=== PATIENT | female | born 1990 | race Caucasian/White ===

== ENCOUNTER → 2020-02-14 13:00 | Outpatient (BNVA) | payer BC, SELFPAY | PROVIDERS: Family Provider Nurse Practitioner; PCP Nurse Practitioner; Visit Provider Emergency Medicine | DX: R11.0 Nausea (principal); N63.0 Unspecified lump in unspecified breast; N39.0 Urinary tract infection, site not specified; R31.9 Hematuria, unspecified | CPT/HCPCS: 81000 ==

== ENCOUNTER 2021-07-15 10:15 | Outpatient (CLI) | payer OTHER, SELFPAY ==
--- NOTE | 2021-07-15 10:28 | MM_ITS ---
WS: [id number] BILATERAL DIGITAL DIAGNOSTIC MAMMOGRAM MAMMOGRAPHY WITH CAD CLINICAL INFORMATION: lump/mass in breast;Daniele nipple discharge HISTORY: COMPARISON: None. TECHNIQUE: Bilateral CC, MLO, and ML views. FINDINGS: The breasts are composed of heterogeneous fibroglandular density, which can limit the detection of sm all underlying mass lesions. Palpable markers left breast. Underlying nodular dense breast tissue lef t breast. Ultrasound is pending for better anatomic detail. Right breast is unremarkable. ULTRASOUND BREAST LEFT TECHNIQUE: Ultrasound left breast focused area of concern. CLINICAL INFORMATION: lump/mass in breast;Daniele nipple discharge COMPARISON: None. FINDINGS: 2 solid homogeneous well-circumscribed lesions left breast at the 11:00 position. Solid lesions measu re approximately 1.3 x 1.5 x 0.7 cm and 0.8 x 1.0 x 0.6 cm. Associated vascularity. These are indeter minant but suspicious for fibroadenomas in a patient this age. Recommend further evaluation with ultr asound-guided biopsy. No other suspicious ultrasound abnormalities. MM/[place] [id number] IMPRESSION: BI-RADS: 4-Suspicious Finding-Biopsy Should Be Considered FOLLOW UP: US Guided Biopsy Recommended RECOMMEND ULTRASOUND-GUIDED BIOPSY OF THE ABOVE-DESCRIBED LEFT BREAST LESIONS.
== END 2021-07-15 10:16 | disposition home or self-care (01) ==
LOC: RADSHAW 10:21
PROVIDERS: PCP Nurse Practitioner Family; Visit Provider Nurse Practitioner Family
DX: Z87.898 Personal history of other specified conditions (principal); N64.52 Nipple discharge; N64.89 Other specified disorders of breast
CPT/HCPCS: 76642; 77066

== ENCOUNTER → 2021-08-13 12:18 | Outpatient (BNVA) | payer OTHER, SELFPAY | PROVIDERS: PCP Nurse Practitioner Family; Visit Provider Nurse Practitioner Women's Health | DX: N64.52 Nipple discharge (principal) | CPT/HCPCS: 84146; 84443 ==

== ENCOUNTER 2021-08-20 13:24 | Outpatient (CLI) | payer OTHER, SELFPAY ==
--- NOTE | 2021-08-20 13:29 | US_ITS ---
WS: [id number] ULTRASOUND-GUIDED LEFT BREAST BIOPSY x2 HISTORY: SOLID LESIONS COMPARISON: 07/15/2021 and 11/16/2014 Procedure, risks and complications are explained to the patient. Medications are reviewed. Consent is obtained. 2 hypoechoic masses are identified in the LEFT breast at 11:00. Masses are localized with ultrasound. As on the prior examination the larger mass at 11:00 is labeled #1. The smaller mass which is slight ly more proximal to the nipple is labeled #2. Skin is cleansed with ChloraPrep and anesthetized with 1% buffered lidocaine. Small dermatome is made. Under sterile conditions masses are biopsied with 14- gauge Achieve needles. Multiple core biopsies are performed. Material placed in formalin and sent to pathology for review. No complications encountered. Material was placed in formalin as requested with the containers labeled #1 and #2. To indicate the correct mass. Breast tissue marker ([place] ultrasound enhanced ribbon): Clips are placed in each mass. Patient left the radiology suite with no complications. Patient is instructed to return to [facility] with any concerns. US/[id number] IMPRESSION: 1. Uncomplicated core needle biopsy LEFT breast mass labeled #1. PATHOLOGY: Fibroadenoma. RECOMMENDATION: No follow-up necessary. Routine screening mammograms beginning at 40 years of age. 2. Uncomplicated core needle biopsy LEFT breast mass labeled #2. PATHOLOGY: Fibroadenoma. RECOMMENDATION: No follow-up necessary at this time. Routine screening mammogra m beginning at 40 years of age.
== END 2021-08-20 13:25 | disposition home or self-care (01) ==
PROVIDERS: PCP Nurse Practitioner Family; Visit Provider Nurse Practitioner Family
DX: N63.12 Unspecified lump in the right breast, upper inner quadrant (principal); D24.2 Benign neoplasm of left breast
CPT/HCPCS: 19083; 19084; 88305

== ENCOUNTER → 2021-09-17 14:28 | Outpatient (BNVA) | payer OTHER, SELFPAY | PROVIDERS: PCP Nurse Practitioner Family; Visit Provider Nurse Practitioner Women's Health | DX: Z01.419 Encounter for gynecological examination (general) (routine) without abnormal findings (principal); Z11.3 Encounter for screening for infections with a predominantly sexual mode of transmission | CPT/HCPCS: 87491; 87591; 87624; 87661 ==

== ENCOUNTER → 2021-10-25 17:19 | Outpatient (BNVA) | payer OTHER, SELFPAY | PROVIDERS: PCP Nurse Practitioner Family; Visit Provider Nurse Practitioner | DX: R50.9 Fever, unspecified (principal) | CPT/HCPCS: 87400; 87635; 87880 ==

== ENCOUNTER 2022-05-14 13:51 | Observation (INO) | payer SELFPAY ==
[2022-05-14] VITALS (19 sets, daily range): BP systolic 107–173; BP diastolic 74–113; PULSE 54–97; RESP 12–32; TEMP 36.6–36.7; O2SAT 93–100
--- NOTE | 2022-05-14 14:59 | US_ITS ---
WS: [id number] TRANSVAGINAL PELVIC ULTRASOUND HISTORY: abd pain COMPARISON: None available. Uterus: 4.4 cm x 4.6 cm x 8.7 cm. Normal size uterus is midline. No fibroid or mass. Endometrium: Fluid along the endometrial canal. There is a cystic structure with layering echoes whic h may be related to ongoing bleeding. Right ovary: Not visualized. Left ovary: 6.5 cm x 4.7 cm x 5.3 cm. LEFT ovary is enlarged and very heterogeneous. The ovary contai ns small peripheral follicles. There are follicles of various sizes. Adjacent to the LEFT ovary is a complex ovoid hypoechoic mass measuring 4.4 x 2.9 x 3.2 cm with peripheral increased vascularity. The re is a large amount of fluid in the cul-de-sac and extending into the adnexa. This is complex fluid consistent with hemoperitoneum. Clotted blood is also noted within the RIGHT adnexa. US/US transvaginal [id number] IMPRESSION: 1. No intrauterine gestation is identified. There is some fluid and blood prod ucts within the endometrial canal but no identifiable sac, pole or yolk s ac. 2. Moderate amount of complex fluid within the cul-de-sac and greatest into th e LEFT adnexa consistent with hemoperitoneum. 3. Abnormal soft tissue mass in the LEFT adnexa. With a history of positive be ta hCG and no intrauterine gestation ectopic is most likely. This sof t tissue mass measures 4.4 x 2.9 x 3.2 cm. I suspect this ectopic is ruptured. 4. The RIGHT ovary is not visualized. Notified Jeovanny Gamboa MD at 05/14/2022 4:07 PM.
--- NOTE | 2022-05-14 15:00 | ED_ITS ---
HPI - General: Chief complaint: Vaginal Bleeding Stated complaint: preg/bleeding Time Seen by Provider: 05/14/22 14:55 History of Present Illness: 32-year-old presents due to left lower quadrant abdominal pain. States that she believes she is but does not know exac tly how far along she is. States she was seen in clinic yesterday and told she has a positive urine test and went to [place] [facility] but the wait was too long and she left and came here. Patient states she has had vaginal bleeding for 3 weeks. She denies any blood thinner use. Denies any nausea vomiting diarrhea constipation. Denies any dysuria. Date of Last Menstrual Period: 02/07/20 Review of Systems Narrative: - CONSTITUTIONAL: Denies weight loss, fever and chills. - HEENT: Denies changes in vision and hearing. - RESPIRATORY: Denies SOB and cough. - CV: Denies palpitations and CP. - GI: As above - : As above - MSK: Denies myalgia and joint pain. - SKIN: Denies rash and pruritus. - NEUROLOGICAL: Denies headache, weakness, numbness and syncope. - PSYCHIATRIC: Denies suicidal ideation [facility] ED PFSH: Medical History Depression Fibroadenoma of left breast (~08/2021) Hypertension dx by pcp but not on medication No pertinent past medical history neghx: dm,thyroid,dvt/pe PCP: Romulo Lozano Surgical History H/O lumpectomy (~2017) Left breast--- reports several masses-benign at [facility] History of kidney surgery Reflux surgery ---at age 15 Nephrology: Brittany Amezcua at [facility] Family History Grandmother No problems noted. Family/Other Breast cancer Maternal Great Grandmother--dx age unknown Ovarian cancer Maternal Aunt--dx age unknown Grandfather Diabetes Maternal Heart disease Maternal Hypertension Maternal Stroke Maternal Denies family history of Colon cancer Hypercholesteremia Uterine cancer Thyroid disease Female Reproductive History: Date of last menstrual period: 02/07/20 Physical Exam Narrative: EXAM NARRATIVE: - GENERAL: Alert and oriented x 3. No acute distress. Well-nourished. - EYES: EOMI. Anicteric. - HENT: Atraumatic, no C-spine tenderness. Moist mucous membranes. No scleral icterus. No cervical lymphadenopathy. - LUNGS: Clear to auscultation bilaterally. No accessory muscle use. Equal lung sounds bilaterally. No respiratory distress. - CARDIOVASCULAR: Regular rate and rhythm. No murmur. No JVD. - ABDOMEN: Soft, mild left lower quadrant tenderness, non-distended. Negative CVA tenderness bilaterally, no rebound or guarding, negative Vázquez sign. No palpable masses. - EXTREMITIES: No edema. Non-tender. - SKIN: No rashes or lesions. Warm. - NEUROLOGIC: No meningismus or focal neurological deficits. CN II-XII grossly intact. - PSYCHIATRIC: Cooperative. Appropriate mood and affect. Course Vital Signs: Vital signs: Vital Signs Temperature 98.1 F 05/14/22 14:13 Pulse Rate 90 05/14/22 15:51 Respiratory Rate 16 05/14/22 14:13 Blood Pressure 153/102 05/14/22 15:51 Pulse Oximetry 100 05/14/22 15:51 MDM - OB/Uterine Contractions Medical Decision Making 32-year-old presents due to abdominal pain. Was told at the clinic yesterday t hat she is . Ultrasound concerning for ectopic . Patient is he medically stable afebrile nontoxic-appearing. She is Rh+ no RhoGAM is required. Discussed with BIODIESEL PROCESSING TECHNICIAN who will take her to the OR. Further evaluation management per BIODIESEL PROCESSING TECHNICIAN. Patient admitted in stable condition. Lab Data : 05/14/22 16:04 05/14/22 16:04 Radiology Impressions Transvaginal US 05/14/22 14:59 IMPRESSION: 1. No intrauterine gestation is identified. There is some fluid and blood products within the endometrial canal but no identifiable sac, pole or yolk sac. 2. Moderate amount of complex fluid within the cul-de-sac and greatest into the LEFT adnexa consistent with hemoperitoneum. 3. Abnormal soft tissue mass in the LEFT adnexa. With a history of positive beta hCG and no intrauterine gestation ectopic is most likely. This soft tissue mass measures 4.4 x 2.9 x 3.2 cm. I suspect this ectopic is ruptured. 4. The RIGHT ovary is not visualized. Notified Jeovanny Gamboa MD at 05/14/2022 4:07 PM. Laboratory Results WBC 8.7 10^3/uL (4.0-10.0) 05/14/22 16:04 RBC 4.10 10^6/uL (4.1-5.3) 05/14/22 16:04 Hgb 12.1 g/dL (11.5-15.3) 05/14/22 16:04 Hct 37.4 % (37.0-47.0) 05/14/22 16:04 MCV 91.2 fl (81-99) 05/14/22 16:04 MCH 29.5 pg (28.0-34.0) 05/14/22 16:04 MCHC 32.4 g/dL (30.0-36.0) 05/14/22 16:04 RDW 12.9 % (12.1-15.1) 05/14/22 16:04 Plt Count 366 10^3/cmm (130-400) 05/14/22 16:04 MPV 9.1 fL (7.4-10.4) 05/14/22 16:04 Neut % (Auto) 66.7 % 05/14/22 16:04 Lymph % (Auto) 24.6 % 05/14/22 16:04 [place] % (Auto) 6.3 % 05/14/22 16:04 Eos % (Auto) 1.6 % 05/14/22 16:04 Baso % (Auto) 0.6 % 05/14/22 16:04 Neut # (Auto) 5.78 10^3/uL (1.8-7.7) 05/14/22 16:04 Lymph # (Auto) 2.1 10^3/uL (0.8-4.8) 05/14/22 16:04 [place] # (Auto) 0.6 10^3/uL (0.2-0.9) 05/14/22 16:04 Eos # (Auto) 0.1 10^3/uL (0.0-0.8) 05/14/22 16:04 Baso # (Auto) 0.1 10^3/uL (0.0-0.1) 05/14/22 16:04 Nucleated RBC % (auto) 0 % 05/14/22 16:04 Nucleated RBCs # 0.0 /100WBC 05/14/22 16:04 Sodium 137 mmol/L (136-145) 05/14/22 16:04 Potassium 3.8 mmol/L (3.5-5.1) 05/14/22 16:04 Chloride 102 mmol/L (98-107) 05/14/22 16:04 Carbon Dioxide 24 mmol/L (22-29) 05/14/22 16:04 Anion Gap 14.8 (5-19) 05/14/22 16:04 BUN 13 mg/dL (6-20) 05/14/22 16:04 Creatinine 0.8 mg/dL (0.5-0.9) 05/14/22 16:04 GFR Calculation 83.1 mL/min (90-130) L 05/14/22 16:04 Glucose 82 mg/dL (65-115) 05/14/22 16:04 Calculated Osmolality 283 mOsm/kg (285-295) L 05/14/22 16:04 Calcium 8.9 mg/dL (8.5-10.5) 05/14/22 16:04 Total Bilirubin 2.0 mg/dL (0.15-1.2) H 05/14/22 16:04 AST 25 U/L (0-32) 05/14/22 16:04 ALT 25 U/L (0-33) 05/14/22 16:04 Alkaline Phosphatase 91 IU/L (35-105) 05/14/22 16:04 Total Protein 7.4 g/dL (6.6-8.7) 05/14/22 16:04 Albumin 4.5 g/dL (3.5-5.2) 05/14/22 16:04 Globulin 2.9 g/dL (1.3-4.6) 05/14/22 16:04 Lipase 30 U/L (13-60) 05/14/22 16:04 Ser , Semi-Qnt 289.10 mIU/mL 05/14/22 16:04 Amorphous Sediment Not Reportable 05/14/22 16:10 Rho(D) Type Positive 05/14/22 16:04 Discharge Plan Discharge Condition: Stable Prescriptions: No Action No Known Home Medications 0RF Referrals: Aravind Lozano [Primary Care Provider] - Coding Level of Care Code ED Router Tender for Racquel José
[2022-05-14] MEDS: acetaminophen 500 mg Tablet PO (16:02)
[2022-05-14 16:10] LABS: Basophils # 0.1 10^3/uL (0.0-0.1); Basophils % 0.6 %; Eosinophils # 0.1 10^3/uL (0.0-0.8); Eosinophils % 1.6 %; Hematocrit 37.4 % (37.0-47.0); Hemoglobin 12.1 g/dL (11.5-15.3); Lymphocytes # 2.1 10^3/uL (0.8-4.8); Lymphocytes % 24.6 %; Mean Corpuscular HGB Conc 32.4 g/dL (30.0-36.0); Mean Corpuscular Hemoglobin 29.5 pg (28.0-34.0); Mean Corpuscular Volume 91.2 fl (81-99); Mean Platelet Volume 9.1 fL (7.4-10.4); Monocytes # 0.6 10^3/uL (0.2-0.9); Monocytes % 6.3 %; Neutrophils # 5.78 10^3/uL (1.8-7.7); Neutrophils % 66.7 %; Nucleated Red Blood Cells % 0 %; Platelet Count 366 10^3/cmm (130-400); Red Cell Distribution Width 12.9 % (12.1-15.1); White Blood Count 8.7 10^3/uL (4.0-10.0)
[2022-05-14 16:42] LABS: Alanine Aminotransferase 25 U/L (0-33); Albumin Level 4.5 g/dL (3.5-5.2); Alkaline Phosphatase 91 IU/L (35-105); Aspartate Amino Transferase 25 U/L (0-32); Blood Urea Nitrogen 13 mg/dL (6-20); Calcium 8.9 mg/dL (8.5-10.5); Carbon Dioxide 24 mmol/L (22-29); Chloride 102 mmol/L (98-107); Globulin 2.9 g/dL (1.3-4.6); Glomerular Filtration Rate 83.1 mL/min (90-130); Glucose 82 mg/dL (65-115); Lipase 30 U/L (13-60); Osmolality Calculated 283 mOsm/kg (285-295); Sodium 137 mmol/L (136-145); Total Protein 7.4 g/dL (6.6-8.7)
[2022-05-14 16:51] LABS: Anion Gap 14.8 (5-19); Potassium 3.8 mmol/L (3.5-5.1)
--- NOTE | 2022-05-14 17:42 | PM.CONSULT ---
Providers/Reason For Consult Consulting Physician/Specialty*: Amy Clayton MD Reason for Consult*: ectopic Requesting Physician: Dr. Mustafa Primary Care Provider: Aravind Lozano History of Present Illness History of Present Illness Radha Maxwell is a 32 year old female who has been having pretty severe pain for about 3 weeks. She had an abnormal pap smear last year and didn't follow up and had convinced herself that she was dying of cervical cancer and that is why she was having so much pain. Yesterday, the pain worsened and she went to her doctor. She was determined to be . She was sent to [facility], but the wait was too long and she left AMA and came here. She had an ultrasound in which they found a ruptured ectopic . She has a mild-moderate amount of blood in her pelvis. Of note, she reports that she thought that she had a miscarriage. She passed a lot of tissue several days ago. She has chronic kidney disease stage 3-B and is requesting that both tubes be removed. A could put her in renal failure. Review of Systems General: Reports: 10 or more systems reviewed and unremarkable except in HPI and below Medications/Allergies Home Medications Medication Instructions Recorded Confirmed Last Taken Type No Known Home Medications 05/14/22 05/14/22 Unknown History Allergies Allergy/AdvReac Type Severity Reaction Status Date / Time tramadol Allergy unknown Verified 05/14/22 15:04 PFSH Acute PFSH: Medical History Depression Fibroadenoma of left breast (~08/2021) Hypertension dx by pcp but not on medication No pertinent past medical history neghx: dm,thyroid,dvt/pe PCP: Romulo Lozano Surgical History H/O lumpectomy (~2017) Left breast--- reports several masses-benign at [facility] History of kidney surgery Reflux surgery ---at age 15 Nephrology: Brittany Amezcua at [facility] Family History Grandmother No problems noted. Family/Other Breast cancer Maternal Great Grandmother--dx age unknown Ovarian cancer Maternal Aunt--dx age unknown Grandfather Diabetes Maternal Heart disease Maternal Hypertension Maternal Stroke Maternal Denies family history of Colon cancer Hypercholesteremia Uterine cancer Thyroid disease Female Reproductive History: Date of last menstrual period: 02/07/20 : 2 Vitals/I&O/Wt Last Vital Signs Temp 98.1 F 05/14/22 14:13 Pulse 90 05/14/22 15:51 Resp 16 05/14/22 14:13 BP 153/102 05/14/22 15:51 Pulse Ox 100 05/14/22 15:51 Weight last 48 hrs Weight 183 lb Physical Exam Narrative: The patient appears well, but is in obvious pain. She is able to tell me exactly what has been happening with her. Const: COMMON NORMALS: no acute distress, average body habitus, patient oriented x3, no limitations, healthy appearing, alert and well nourished GENERAL APPEARANCE: cooperative, comfortable, well kempt and well developed ORIENTATION/CONSCIOUSNESS: Yes awake, Yes oriented to person, Yes oriented to place and Yes oriented to time Resp: COMMON NORMALS: normal respiratory effort EFFORT & INSPECTION: Yes able to speak in complete sentences GI: COMMON NORMALS: Soft to palpation PALPATION: Yes Soft to palpation, Yes Guarding due to palpation present (GI) and Yes Rebound tenderness present Extremity: COMMON NORMALS: no calf tenderness Neuro: COMMON NORMALS: patient oriented x3 SENSORIUM/ORIENTATION: Yes alert, Yes oriented to person, Yes oriented to place and Yes oriented to time Psych: APPEARANCE: Yes well kempt Data : 05/14/22 16:04 05/14/22 16:04 A&P Assessment and plan (1) Ruptured ectopic : plan to take to operating room for laparoscopy, removal of ectopic and bilateral salpingectomy. Status: Acute Coding Level of Care Code Acute Mathematics Teacher for [facility] Fwd Diagnoses Ruptured ectopic O00.90
[2022-05-14 17:52] LABS: Bilirubin Urine 1+ (Negative); Blood Urine 3+ (Negative); Glucose Urine UA Norm (Normal); Ketones Urine Negative (Negative); Nitrate Urine Negative (Negative); Protein Urine 3+ (Negative); Urine Appearance Turbid (CLEAR); Urine Color Red (Yellow); Urobilinogen Urine 1 mg/dL (Negative); pH Urine 5 (5-7)
[2022-05-14 17:53] LABS: Add Urine Culture? Yes; Leukocyte Esterase Urine Trace (Negative); RBC Urine TOO NUMEROUS TO CNT /hpf (0-2)
--- NOTE | 2022-05-14 18:02 | ANES.PREANE2 ---
Pre-Anesthetic Assessment Height/Weight: Height 1.7 m Weight 83.007 kg Temp Pulse Resp BP Pulse Ox 98.1 F 90 16 153/102 100 05/14/22 14:13 05/14/22 15:51 05/14/22 14:13 05/14/22 15:51 05/14/22 15:51 Operation Date: 05/14/22 18:00 Proposed Procedures p Laparoscopic Ectopic (Not Applicable) - Amy Clayton MD s Laparoscopic Tubal Fulguration(Bilateral) - Amy Clayton MD Familial anesthetic complications: None Was Beta Sangeetha taken within 24 hours: N/A Was Clonidine taken within 24 hours: N/A Last intake: > 8 hrs Social Tobacco and No alcohol Exam alert, oriented x 3, clear to auscultation bilaterally and regular rate & rhythm Airway Mallampati: Class I Dentition: chipped and other (missing) Chronic Renal Insufficiency (Stage III - patient states she was born with it ) Anesthetic Plan ASA status: 3E Anesthesia: General Risk of > 500 ml blood loss (7ml/kg in children): No Medications/Allergies Home Medications Medication Instructions Recorded Confirmed Last Taken Type No Known Home Medications 05/14/22 05/14/22 Unknown History Allergies Allergy/AdvReac Type Severity Reaction Status Date / Time tramadol Allergy unknown Verified 05/14/22 15:04 [facility] Anesthesia Medical History Depression Fibroadenoma of left breast (~08/2021) Hypertension dx by pcp but not on medication No pertinent past medical history neghx: dm,thyroid,dvt/pe PCP: Romulo Lozano Surgical History H/O lumpectomy (~2017) Left breast--- reports several masses-benign at [facility] History of kidney surgery Reflux surgery ---at age 15 Nephrology: Brittany Amezcua at [facility] Family History Grandmother No problems noted. Family/Other Breast cancer Maternal Great Grandmother--dx age unknown Ovarian cancer Maternal Aunt--dx age unknown Grandfather Diabetes Maternal Heart disease Maternal Hypertension Maternal Stroke Maternal Denies family history of Colon cancer Hypercholesteremia Uterine cancer Thyroid disease Female Reproductive History Date of last menstrual period: 02/07/20 : 2 Data Anesthesia : 05/14/22 16:04 05/14/22 16:04 Short CBC 05/14/22 Range/Units 16:04 WBC 8.7 (4.0-10.0) 10^3/uL Hgb 12.1 (11.5-15.3) g/dL Hct 37.4 (37.0-47.0) % MCV 91.2 (81-99) fl Plt Count 366 (130-400) 10^3/cmm Neut % (Auto) 66.7 % Neut # (Auto) 5.78 (1.8-7.7) 10^3/uL BMP 05/14/22 16:04 Sodium 137 Potassium 3.8 Chloride 102 Carbon Dioxide 24 BUN 13 Creatinine 0.8 Glucose 82 Calcium 8.9 Liver Function 05/14/22 Range/Units 16:04 Total Bilirubin 2.0 H (0.15-1.2) mg/dL AST 25 (0-32) U/L ALT 25 (0-33) U/L Alkaline Phosphatase 91 (35-105) IU/L Albumin 4.5 (3.5-5.2) g/dL Urine 05/14/22 Range/Units 16:10 Urine Color Red (Yellow) Urine Appearance Turbid (CLEAR) Urine pH 5 (5-7) Ur Specific [place] 1.020 (1.005-1.030) Urine Protein 3+ H (Negative) Urine Glucose (UA) Norm (Normal) Urine Ketones Negative (Negative) Urine Nitrate Negative (Negative) Urine Bilirubin 1+ H (Negative) Ur Leukocyte Esterase Trace H (Negative) Urine RBC Too numerous to cnt H (0-2) /hpf Urine WBC Not Reportable Blood Bank 05/14/22 16:04 Rho(D) Type Positive Cardiac Studies: No Data to Display
[2022-05-14] MEDS: sodium chloride 0.9% 1,000 ML 30 ML IV (18:20)
--- NOTE | 2022-05-14 21:33 | PM.OP ---
Operative Report Date of procedure: May 14, 2022 Pre-op diagnosis: Preop Diagnosis ruptured ectopic Post-op diagnosis: same Post-op findings: left ruptured ectopic right fallopian tube twisted around ovary and adherent to back of uterus Procedure done: laparoscopic bilateral salpingectomy. Removal of ruptured ectopic Specimens removed/disposition: ruptured ectopic in left fallopian tube. Normal appearing right fallopian tube to pathology Surgeon: Amy Clayton Anesthesia: General Estimated blood loss (mL): 5 IV fluids (mL): 1,300 Urine output (mL): 100 Complications: none Findings: 10 week sized uterus, 300 ml of blood in the pelvis. Ruptured left ectopic . right fallopian tube twisted around ovary and adherent to the uterus. Condition: stable Disposition: PACU Procedure: The patient was taken to the operating room where general anesthesia was administered and found to be adequate. She was prepped and draped in the normal sterile fashion in the dorsal lithotomy position in [facility]. A weighted speculum was placed into the vagina and the anterior lip of the cervix grasped with a single-tooth tenaculum. A ZUMI uterine manipulator was placed. A Baxter catheter was placed. The weighted speculum was removed. Attention was turned to the abdomen after the gloves were changed. A 5 mm infraumbilical incision was made and carried down to the underlying layer of fascia. Using the 5 mm trocar and the scope the trocar was placed under direct visualization. The pelvis was visualized and found to be filled with blood. 2 additional 5 mm ports were placed. One on the right and 1 on the left lower abdomen. These were placed under direct visualization. The uterus was elevated out of the pelvis and the entire pelvis visualized. The uterus appeared to be normal. The right adnexa appeared to be normal however the tube was twisted around to the ovary and then anterior to the back of the uterus The left adnexa appeared to be very abnormal. The fallopian tube was extremely large and there was an area of rupture with clots coming out of it. The right 5 mm port was changed to a 10 mm port. The infundibulopelvic ligament was cauterized between the fallopian tube and the ovary. The ruptured fallopian tube was removed in its entirety. There was no bleeding from the pedicle and the ovary was not involved. There was excellent hemostasis. The left fallopian tube was placed into an Endobag and removed from the abdomen. Attention was then turned to the right adnexa. The right fallopian tube was elevated and using the cautery device was divided in the mesosalpinx, between the ovary and the tube. It was also detached from the posterior of the uterus using the cautery device. The right fallopian tube was removed in 2 pieces. There was excellent hemostasis. The pelvis was irrigated and suctioned and there was excellent hemostasis. The trochars were removed under direct visualization and the abdomen desufflated. The uterine manipulator was removed. The Baxter catheter was left in place. The fascia was closed in the 10 mm port site. The incisions were closed using 3-0 Vicryl and skin glue. The patient tolerated the procedure well. Sponge lap and needle counts were correct x3. Taken to the recovery room in stable condition.
--- NOTE | 2022-05-14 21:48 | SUR.PHASEI ---
patient brought into pacu asleep, on room air. sat at 96%. patient has dressing in place on abd, dry and intact. jordi pad in place. has murillo draining urine. no pain per faces.
--- NOTE | 2022-05-14 22:17 | PC.NURSE ---
Report called to RN from Sidra LABOY at this time. BRIAN LABOY
[2022-05-14] MEDS: ketorolac 30 mg/mL INJ IVP (22:41)
[2022-05-14] MEDS: HYDROcodone-acetaminophen 5-325 mg Tablet PO (23:18)
[2022-05-15 00:44] VITALS: BP 119/77; PULSE 80; RESP 17
[2022-05-15 01:43] VITALS: BP 146/96; PULSE 90; RESP 12
[2022-05-15 03:43] VITALS: BP 129/78; PULSE 98; TEMP 36.8
[2022-05-15] MEDS: ketorolac 30 mg/mL INJ IVP ×2 (05:18→08:56)
[2022-05-15] MEDS: dextrose 5%-lactated ringers 1,000 ML 125 ML IV (05:19)
[2022-05-15 05:34] LABS: Hematocrit 32.7 % (37.0-47.0); Hemoglobin 10.7 g/dL (11.5-15.3); Mean Corpuscular HGB Conc 32.7 g/dL (30.0-36.0); Mean Corpuscular Hemoglobin 29.8 pg (28.0-34.0); Mean Corpuscular Volume 91.1 fl (81-99); Mean Platelet Volume 9.2 fL (7.4-10.4); Platelet Count 337 10^3/cmm (130-400); Red Blood Count 3.59 10^6/uL (4.1-5.3); Red Cell Distribution Width 12.8 % (12.1-15.1); White Blood Count 9.3 10^3/uL (4.0-10.0)
[2022-05-15] MEDS: HYDROcodone-acetaminophen 5-325 mg Tablet PO (06:51)
--- NOTE | 2022-05-15 07:57 | P.DS_ITS ---
Discharge Providers Date of Admission: 05/14/22 22:18 Date of Discharge: May 15, 2022 Attending Provider at Admission: Amy Clayton MD Attending Provider at Discharge: Amy Clayton MD Primary Care Provider: Aravind Lozano Diagnoses at Discharge Discharge Diagnosis (1) Ruptured ectopic : Status: Acute Reason for Visit Reason for Visit: preg/bleeding Hospital Course Hospital Course The patient was admitted from the ER for ruptured ectopic . She had laparoscopy where I removed the blood from her pelvis, as well as both of her fallopian tubes. She did well postoperatively and was ready for discharge on day #1 Physical Exam Narrative: The patient is doing well this morning. She is resting comfortably. Const: COMMON NORMALS: no acute distress, average body habitus, patient oriented x3, no limitations, healthy appearing, alert and well nourished GENERAL APPEARANCE: cooperative, comfortable, well kempt and well developed ORIENTATION/CONSCIOUSNESS: Yes awake, Yes oriented to person, Yes oriented to place and Yes oriented to time Resp: COMMON NORMALS: normal respiratory effort EFFORT & INSPECTION: Yes able to speak in complete sentences GI: COMMON NORMALS: Soft to palpation and non-tender PALPATION: Yes Soft to palpation Extremity: COMMON NORMALS: no calf tenderness Neuro: COMMON NORMALS: patient oriented x3 SENSORIUM/ORIENTATION: Yes alert, Yes oriented to person, Yes oriented to place and Yes oriented to time Psych: APPEARANCE: Yes well kempt Urinary Catheter Management: Baxter: Cath Placed During This Visit: yes, but has since been removed by the nurse Reason for Continuing Indwelling Catheter: Perioperative Use in Selected Surgeries Urinary Catheter Date of Insertion: 05/14/22 Urinary Catheter Time of Insertion: 20:03 Date Urinary Catheter Removed: 05/15/22 Time Urinary Catheter Discontinued: 00:00 Discharge Data Studies Completed and Pending Completed Studies During Hospitalization Category Date Time Status US transvaginal 54100 Stat Ultrasound 05/14/22 14:59 Completed Pending at discharge Category Date Time Status ES surgery / GI images Routine Exams 05/14/22 19:26 Taken Urine Culture Stat Lab 05/14/22 16:10 Received Urine Culture Stat Lab 05/14/22 20:18 Received Pathology: Surgical [PTH] Routine Pth 05/14/22 21:56 Ordered Radiology Impressions Transvaginal US 05/14/22 14:59 IMPRESSION: 1. No intrauterine gestation is identified. There is some fluid and blood products within the endometrial canal but no identifiable sac, pole or yolk sac. 2. Moderate amount of complex fluid within the cul-de-sac and greatest into the LEFT adnexa consistent with hemoperitoneum. 3. Abnormal soft tissue mass in the LEFT adnexa. With a history of positive beta hCG and no intrauterine gestation ectopic is most likely. This soft tissue mass measures 4.4 x 2.9 x 3.2 cm. I suspect this ectopic is ruptured. 4. The RIGHT ovary is not visualized. Notified Jeovanny Gamboa MD at 05/14/2022 4:07 PM. Laboratory Results WBC 9.3 10^3/uL (4.0-10.0) 05/15/22 05:26 RBC 3.59 10^6/uL (4.1-5.3) L 05/15/22 05:26 Hgb 10.7 g/dL (11.5-15.3) L 05/15/22 05:26 Hct 32.7 % (37.0-47.0) L 05/15/22 05:26 MCV 91.1 fl (81-99) 05/15/22 05:26 MCH 29.8 pg (28.0-34.0) 05/15/22 05:26 MCHC 32.7 g/dL (30.0-36.0) 05/15/22 05:26 RDW 12.8 % (12.1-15.1) 05/15/22 05:26 Plt Count 337 10^3/cmm (130-400) 05/15/22 05:26 MPV 9.2 fL (7.4-10.4) 05/15/22 05:26 Neut % (Auto) 66.7 % 05/14/22 16:04 Lymph % (Auto) 24.6 % 05/14/22 16:04 [place] % (Auto) 6.3 % 05/14/22 16:04 Eos % (Auto) 1.6 % 05/14/22 16:04 Baso % (Auto) 0.6 % 05/14/22 16:04 Neut # (Auto) 5.78 10^3/uL (1.8-7.7) 05/14/22 16:04 Lymph # (Auto) 2.1 10^3/uL (0.8-4.8) 05/14/22 16:04 [place] # (Auto) 0.6 10^3/uL (0.2-0.9) 05/14/22 16:04 Eos # (Auto) 0.1 10^3/uL (0.0-0.8) 05/14/22 16:04 Baso # (Auto) 0.1 10^3/uL (0.0-0.1) 05/14/22 16:04 Nucleated RBC % (auto) 0 % 05/14/22 16:04 Nucleated RBCs # 0.0 /100WBC 05/14/22 16:04 Sodium 137 mmol/L (136-145) 05/14/22 16:04 Potassium 3.8 mmol/L (3.5-5.1) 05/14/22 16:04 Chloride 102 mmol/L (98-107) 05/14/22 16:04 Carbon Dioxide 24 mmol/L (22-29) 05/14/22 16:04 Anion Gap 14.8 (5-19) 05/14/22 16:04 BUN 13 mg/dL (6-20) 05/14/22 16:04 Creatinine 0.8 mg/dL (0.5-0.9) 05/14/22 16:04 GFR Calculation 83.1 mL/min (90-130) L 05/14/22 16:04 Glucose 82 mg/dL (65-115) 05/14/22 16:04 Calculated Osmolality 283 mOsm/kg (285-295) L 05/14/22 16:04 Calcium 8.9 mg/dL (8.5-10.5) 05/14/22 16:04 Total Bilirubin 2.0 mg/dL (0.15-1.2) H 05/14/22 16:04 AST 25 U/L (0-32) 05/14/22 16:04 ALT 25 U/L (0-33) 05/14/22 16:04 Alkaline Phosphatase 91 IU/L (35-105) 05/14/22 16:04 Total Protein 7.4 g/dL (6.6-8.7) 05/14/22 16:04 Albumin 4.5 g/dL (3.5-5.2) 05/14/22 16:04 Globulin 2.9 g/dL (1.3-4.6) 05/14/22 16:04 Lipase 30 U/L (13-60) 05/14/22 16:04 Ser , Semi-Qnt 289.10 mIU/mL 05/14/22 16:04 Urine Color Red (Yellow) 05/14/22 16:10 Urine Appearance Turbid (CLEAR) 05/14/22 16:10 Urine pH 5 (5-7) 05/14/22 16:10 Ur Specific [place] 1.020 (1.005-1.030) 05/14/22 16:10 Urine Protein 3+ (Negative) H 05/14/22 16:10 Urine Glucose (UA) Norm (Normal) 05/14/22 16:10 Urine Ketones Negative (Negative) 05/14/22 16:10 Urine Blood 3+ (Negative) H 05/14/22 16:10 Urine Nitrate Negative (Negative) 05/14/22 16:10 Urine Bilirubin 1+ (Negative) H 05/14/22 16:10 Urine Urobilinogen 1 mg/dL (Negative) H 05/14/22 16:10 Ur Leukocyte Esterase Trace (Negative) H 05/14/22 16:10 Urine RBC Too numerous to cnt /hpf (0-2) H 05/14/22 16:10 Urine WBC Not Reportable 05/14/22 16:10 Ur Squamous Epith Cells Not Reportable 05/14/22 16:10 Amorphous Sediment Not Reportable 05/14/22 16:10 Urine Bacteria /hpf (NONE) 05/14/22 16:10 Blood Type O Positive 05/14/22 18:39 Rho(D) Type Positive 05/14/22 18:39 Antibody Screen Negative 05/14/22 18:39 Vitals Last Vital Signs Temp 98.3 F 05/15/22 03:43 Pulse 98 05/15/22 03:43 Resp 12 05/15/22 01:43 BP 129/78 05/15/22 03:43 Pulse Ox 93 05/14/22 22:20 Discharge Plan Discharge Patient Disposition: Home Condition: Stable Prescriptions: New ibuprofen 800 mg Tablet 800 mg PO Q8H Qty: 30 0RF hydrocodone-acetaminophen 5-325 mg Tablet 1 tab PO Q4H PRN (Reason: Moderate To Severe Pain) Qty: 30 0RF docusate sodium 100 mg Capsule 100 mg PO BID Qty: 60 0RF Discharge Orders: Discharge Order (Routine); Ordered 05/15/22 Ordered By: Amy Clayton Referrals: Amy Clayton MD [Physician] - Aravind Lozano [Primary Care Provider] - Patient Instructions: Post Anesthesia Care Discharge Attestations Time Spent in Discharge Care*: less than 30 min Quality Metrics Clinical Quality Measures [ No reported AMI, CVA or VTE this stay] Coding Level of Care Code Acute Chg FW DC note Diagnoses Ruptured ectopic O00.90
[2022-05-15] MEDS: docusate sodium 100 mg Capsule PO (08:56)
[2022-05-15 09:12] VITALS: BP 105/61; PULSE 88; RESP 15; TEMP 36.8; O2SAT 98
[2022-05-15 12:08] VITALS: BP 105/61; PULSE 88; RESP 15; TEMP 36.8; O2SAT 98
== END 2022-05-15 10:05 | disposition home or self-care (01) ==
LOC: ER 15:02 → OR 17:48 → OBGYN 22:19
PROVIDERS: Admitting Provider Obstetrics & Gynecology; Emergency Provider Emergency Medicine; PCP Nurse Practitioner Family; Visit Provider Obstetrics & Gynecology
PROC: (CPT 59150; principal; 2022-05-14 18:00)
PROC: (CPT 58670; 2022-05-14 18:00)
DX: O00.102 Left tubal pregnancy without intrauterine pregnancy (principal)
CPT/HCPCS: 59151; 36415; 76830; 80053; 81001; 83690; 84702; 85025; 85027; 86850; 86900; 87086; 88305; 99285; G0378; J0330; J0690; J1100; J1200; J1885; J2250; J2405; J2704; J3010; J3490; J7030

== ENCOUNTER 2022-11-13 10:23 | Outpatient (CLI) | payer OTHER, SELFPAY ==
--- NOTE | 2022-11-13 10:15 | USCV_ITS ---
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 [place] Indication: Pain and swelling of rt ankle and foot HISTORY: Lower extremity swelling. PROCEDURES: Venous duplex imaging was performed in only the right lower extremity. The following venous structures were evaluated: common femoral vein, profunda vein, proximal portion of the greater saphenous vein, superficial femoral vein, and the popliteal vein. In addition, the posterior tibial and peroneal trunk were evaluated. Serial compression, augmentation maneuvers, and spectral Doppler flow evaluation were performed. FINDINGS: No evidence of DVT seen in any vessel visualized at this time. CONCLUSIONS No evidence of right lower extremity DVT. Phil Braswell MD (Electronically Signed) Final Date: 13 November 2022 12:00 S
== END 2022-11-13 10:24 | disposition home or self-care (01) ==
LOC: RAD 10:25
PROVIDERS: Visit Provider Nurse Practitioner
DX: M25.571 Pain in right ankle and joints of right foot (principal); M79.89 Other specified soft tissue disorders
CPT/HCPCS: 93971

== ENCOUNTER → 2022-12-31 10:00 | Outpatient (BNVA) | payer OTHER, SELFPAY | PROVIDERS: Referring Provider Registered Nurse; Visit Provider Obstetrics & Gynecology | DX: Z01.419 Encounter for gynecological examination (general) (routine) without abnormal findings (principal) | CPT/HCPCS: 87624 ==

== ENCOUNTER → 2023-04-28 13:30 | Outpatient (BNVA) | payer OTHER, MEDICAID, SELFPAY | PROVIDERS: PCP Family Medicine; Visit Provider Obstetrics & Gynecology | DX: R87.610 Atypical squamous cells of undetermined significance on cytologic smear of cervix (ASC-US) (principal); R87.810 Cervical high risk human papillomavirus (HPV) DNA test positive | CPT/HCPCS: 88305; 88342 ==

== ENCOUNTER → 2023-05-14 12:57 | Outpatient (BNVA) | payer OTHER, MEDICAID, SELFPAY | PROVIDERS: PCP Family Medicine; Visit Provider Obstetrics & Gynecology | DX: Z01.818 Encounter for other preprocedural examination (principal); N87.1 Moderate cervical dysplasia | CPT/HCPCS: 81025; 88307 ==

== ENCOUNTER → 2023-08-09 10:00 | Outpatient (BNVA) | payer OTHER, MEDICAID, SELFPAY | PROVIDERS: PCP Family Medicine; Visit Provider Obstetrics & Gynecology | DX: R30.0 Dysuria (principal); Z20.2 Contact with and (suspected) exposure to infections with a predominantly sexual mode of transmission | CPT/HCPCS: 81000; 87086; 87491; 87591 ==